=== PATIENT | male | born 1955 | race Caucasian/White ===

== ENCOUNTER 2020-05-17 10:04 | Outpatient (CLI) | payer MEDICARE, SELFPAY ==
--- NOTE | 2020-05-17 10:10 | MM_ITS ---
WS: [id number] DIAGNOSTIC BILATERAL DIGITAL MAMMOGRAM WITH CAD Bilateral breast ultrasound, limited. HISTORY: Gynecomastia;HYPERTROPHY OF BREAST COMPARISON: None available. TECHNIQUE: Bilateral craniocaudad, mediolateral oblique, and mediolateral views are submitted. Spot c ompression bilateral CC views. Computer aided detection utilized. Breast composition: Posterior to the nipples are increased dendritic like densities. Findings consist ent with gynecomastia. No suspicious calcifications. Ultrasound to follow. Bilateral breast ultrasound, limited. Flamelike areas of mixed echogenicity with increased vascularity posterior to the nipples. Findings are consistent with gynecomastia. MM/[place] [id number] IMPRESSION: BI-RADS: 2-Benign FOLLOW UP: See Report Findings consistent with bilateral gynecomastia.
== END 2020-05-17 10:05 | disposition home or self-care (01) ==
LOC: RADSHAW 10:08
PROVIDERS: PCP Family Medicine; Visit Provider Family Medicine
DX: N62 Hypertrophy of breast (principal)
CPT/HCPCS: 76642; 77066

== ENCOUNTER 2023-02-02 13:40 | Outpatient (CLI) | payer MEDICARE, SELFPAY ==
--- NOTE | 2023-02-02 13:50 | MM_ITS ---
WS: [id number] BILATERAL 3D TOMOSYNTHESIS DIGITAL DIAGNOSTIC MAMMOGRAPHY WITH CAD CLINICAL INFORMATION: GYNOCOMASTIA HISTORY: Bilateral breast pain posterior to the nipples COMPARISON: 2020 TECHNIQUE: Bilateral CC, MLO, and ML views. FINDINGS: The breasts are composed of heterogeneous fibroglandular density, which can limit the detection of sm all underlying mass lesions. Retroareolar parenchymal tissue similar to the prior examination. Few in cidental punctate calcifications. Ultrasound is pending. ULTRASOUND BREAST BILATERAL TECHNIQUE: Ultrasound bilateral breast focused area of concern. CLINICAL INFORMATION: GYNOCOMASTIA COMPARISON: 2020 FINDINGS: Ultrasound findings compatible with gynecomastia. No evidence of suspicious cystic or solid lesion to target for biopsy. RIGHT BREAST: Ultrasound RIGHT breast area of concern. Dense retroareolar shadowing parenchymal tissu e similar to previous compatible with gynecomastia. LEFT BREAST: Ultrasound LEFT breast area of concern. Dense retroareolar shadowing parenchymal tissue similar to previous compatible with gynecomastia. IMPRESSION: MM/[place] [id number] BI-RADS: 2-Benign FOLLOW UP: See Report
--- NOTE | 2023-02-02 13:53 | US_ITS ---
WS: [id number] BILATERAL 3D TOMOSYNTHESIS DIGITAL DIAGNOSTIC MAMMOGRAPHY WITH CAD CLINICAL INFORMATION: GYNOCOMASTIA HISTORY: Bilateral breast pain posterior to the nipples COMPARISON: 2020 TECHNIQUE: Bilateral CC, MLO, and ML views. FINDINGS: The breasts are composed of heterogeneous fibroglandular density, which can limit the detection of sm all underlying mass lesions. Retroareolar parenchymal tissue similar to the prior examination. Few in cidental punctate calcifications. Ultrasound is pending. ULTRASOUND BREAST BILATERAL TECHNIQUE: Ultrasound bilateral breast focused area of concern. CLINICAL INFORMATION: GYNOCOMASTIA COMPARISON: 2020 FINDINGS: Ultrasound findings compatible with gynecomastia. No evidence of suspicious cystic or solid lesion to target for biopsy. RIGHT BREAST: Ultrasound RIGHT breast area of concern. Dense retroareolar shadowing parenchymal tissu e similar to previous compatible with gynecomastia. LEFT BREAST: Ultrasound LEFT breast area of concern. Dense retroareolar shadowing parenchymal tissue similar to previous compatible with gynecomastia. IMPRESSION: US/US breast BI limited* [id number] BI-RADS: 2-Benign FOLLOW UP: See Report
== END 2023-02-02 13:41 | disposition home or self-care (01) ==
LOC: RAD 13:40
PROVIDERS: PCP Family Medicine; Visit Provider Family Medicine
DX: N62 Hypertrophy of breast (principal); N64.4 Mastodynia
CPT/HCPCS: 76642; 77062; G0279

== ENCOUNTER 2024-03-10 09:45 | Outpatient (CLI) | payer MEDICARE, SELFPAY ==
--- NOTE | 2024-03-10 09:50 | MM_ITS ---
WS: [id number] BILATERAL 3D TOMOSYNTHESIS DIGITAL DIAGNOSTIC MAMMOGRAPHY WITH CAD CLINICAL INFORMATION: GYNECOMASTIA HISTORY: Gynecomastia COMPARISON: 2022 TECHNIQUE: Bilateral CC, MLO, and ML views. FINDINGS: The breasts are composed of heterogeneous fibroglandular density, which can limit the detection of sm all underlying mass lesions. Prominent retroareolar parenchymal tissue similar to the prior examinati ons. Parenchymal pattern is similar to previous. Ultrasound is pending. ULTRASOUND BREAST BILATERAL TECHNIQUE: Ultrasound bilateral breast focused area of concern. CLINICAL INFORMATION: GYNECOMASTIA COMPARISON: 2022 FINDINGS: Ultrasound findings compatible with gynecomastia. No evidence of suspicious cystic or solid lesion to target for biopsy. RIGHT BREAST: Ultrasound RIGHT breast area of concern. Dense retroareolar shadowing parenchymal tissu e similar to previous compatible with gynecomastia. No new lesions. LEFT BREAST: Ultrasound LEFT breast area of concern. Dense retroareolar shadowing parenchymal tissue similar to previous compatible with gynecomastia. No new lesions. MM/MM diag BI tomosynthesis [id number] IMPRESSION: DENSITY: The breasts are heterogeneously dense, which may obscure small masses. BI-RADS: 2 - Benign FOLLOW UP: See Report
== END 2024-03-10 09:46 | disposition home or self-care (01) ==
LOC: RAD 09:47
PROVIDERS: PCP Family Medicine; Visit Provider Family Medicine
DX: N62 Hypertrophy of breast (principal); R92.333 Mammographic heterogeneous density, bilateral breasts
CPT/HCPCS: 76642; 77062; G0279